=== PATIENT | female | born 1995 | race Hispanic/Latino ===

== ENCOUNTER 2023-01-26 12:07 | Emergency (ER) | payer OTHER ==
[2023-01-26 14:04] LABS: #Eosinphils 0.2 10x3/uL (0.0-0.5); #Monocytes 0.5 10x3/uL (0.0-1.1); #Neutrophils 5.7 10x3/uL (1.5-8.4); %Basophils 0.5 % (0.0-2.0); %Eosinophils 1.8 % (0.0-6.0); %Lymphocytes 22.4 % (18.0-47.0); %Monocytes 6.5 % (0.0-10.0); %Neutrophils 68.3 % (40.0-75.0); Hemoglobin 11.1 g/dL (12.0-15.5); Mean Corpuscular HGB CONC 35.2 g/dL (32.0-36.0); Mean Corpuscular Hemoglobin 31.4 pg (27.0-33.0); Mean Corpuscular Volume 89.2 fl (81.6-98.3); Mean Platelet Volume 9.3 fl (7.4-10.4); Platelet Count 331 10x3/uL (150-450); RBC Distribution Width 12.9 % (11.5-14.5); Red Blood Cell (RBC) Count 3.53 10x6/uL (3.90-5.03); White Blood Cell (WBC) Count 8.4 10x3/uL (3.5-10.5)
== END 2023-01-26 16:07 | disposition home or self-care (01) ==
LOC: CSHERS 12:07
DX: O26.852 Spotting complicating pregnancy, second trimester (principal); Z3A.15 15 weeks gestation of pregnancy; W18.2XXA Fall in (into) shower or empty bathtub, initial encounter
CPT/HCPCS: 36415; 76815; 84702; 85025

== ENCOUNTER 2023-07-09 03:29 | Inpatient (IN) | payer MEDICAID, OTHER, SELFPAY ==
[2023-07-09 04:55] VITALS: BMI 28.3
[2023-07-09] MEDS ORDERED: hydrALAZINE 20 MG/ML VIAL SLOW IVP PRN ×3 (04:55→20:37)
[2023-07-09] MEDS ORDERED: Morphine 4 MG/ML VIAL SLOW IVP SCH (05:00)
[2023-07-09] MEDS ORDERED: Bupivacaine 0.25% HCL 30 ML VIAL ONE (08:00)
[2023-07-09] MEDS ORDERED: Tranexamic Acid 1,000 MG/10 ML VIAL IVP PRN (08:26)
[2023-07-09] MEDS ORDERED: Methylergonovine 0.2 MG/ML VIAL IM PRN (08:26)
[2023-07-09] MEDS ORDERED: Diphenoxylate HCl/Atropine Tablet PO PRN (08:26)
[2023-07-09] MEDS ORDERED: Misoprostol 200 MCG TAB PR PRN (08:26)
[2023-07-09] MEDS ORDERED: Promethazine HCl 25 MG/ML VIAL IM PRN ×2 (08:26→12:09)
[2023-07-09] MEDS ORDERED: Lidocaine 1% (PF) 30 ML VIAL SC PRN (08:26)
[2023-07-09] MEDS ORDERED: Docusate 100 MG CAP PO PRN (08:26)
[2023-07-09] MEDS ORDERED: Carboprost 250 MCG/ML AMP IM PRN (08:26)
[2023-07-09] MEDS ORDERED: Ondansetron PF 4 MG/2 ML Vial IVP PRN ×2 (08:26→12:09)
[2023-07-09] MEDS ORDERED: Acetaminophen 500 MG TAB PO PRN (08:26)
[2023-07-09] MEDS ORDERED: Oxytocin 30 units/NS 500 ML 500 ML IV SCH ×2 (08:30)
[2023-07-09 09:07] LABS: Hematocrit 38.1 % (34.9-44.5); Hemoglobin 13.4 g/dL (12.0-15.5); Mean Corpuscular HGB CONC 35.2 g/dL (32.0-36.0); Mean Corpuscular Hemoglobin 30.6 pg (27.0-33.0); Mean Platelet Volume 9.9 fl (7.4-10.4); Platelet Count 321 10x3/uL (150-450); RBC Distribution Width 13.2 % (11.5-14.5); Red Blood Cell (RBC) Count 4.38 10x6/uL (3.90-5.03); White Blood Cell (WBC) Count 12.6 10x3/uL (3.5-10.5)
[2023-07-09] MEDS ORDERED: fentaNYL/Ropivacaine Epidural 100 ML ONE (09:21)
[2023-07-09 09:47] LABS: HBSAg Index 0.17 S/CO (0-0.99); Hep B Surf Ag - L&D Non-Reactive S/CO (NonReactive)
[2023-07-09 09:49] LABS: Syphilis Antibody Nonreactive (Nonreactive); Syphilis Antibody Index 0.03 S/CO (<1.00 Non-Reactive)
[2023-07-09] MEDS ORDERED: Lactated Ringer's 500 ML IV PRN (12:09)
[2023-07-09] MEDS ORDERED: Moisturizing Cream (Eucerin) 113 GM JAR TOP PRN (12:09)
[2023-07-09] MEDS ORDERED: Naloxone HCl 0.4 mg/ml Vial IVP PRN ×2 (12:09)
[2023-07-09] MEDS ORDERED: diphenhydrAMINE 50 MG/ML VIAL IVP PRN (12:09)
[2023-07-09] MEDS ORDERED: ePHEDrine Sulfate 50 MG/10 ML VIAL SLOW IVP PRN (12:09)
[2023-07-09] MEDS ORDERED: Communication Order-Pharmacy FS SCH (12:15)
[2023-07-09] MEDS ORDERED: fentaNYL 2 mcg/Ropivacaine 0.2% Epidural 100 ML CADD EPIDURAL SCH (12:15)
[2023-07-09] MEDS: Acetaminophen 325 MG TAB PO PRN (14:19)
[2023-07-09] MEDS: Lactated Ringer's 1,000 ML IV SCH ×2 (18:26→18:27)
[2023-07-09] MEDS ORDERED: Milk Of Magnesia 30 ML UDCUP PO PRN (20:37)
[2023-07-09] MEDS ORDERED: Boostrix 0.5 ML (Tdap) VIAL (>/=7 yrs of age) IM ONE (20:37)
[2023-07-09] MEDS ORDERED: Bisacodyl 10 MG SUPP PR PRN (20:37)
[2023-07-09] MEDS ORDERED: diphenhydrAMINE 25 MG CAP PO PRN (20:37)
[2023-07-09] MEDS ORDERED: Lanolin Ointment 7 GM TUBE TOP PRN (20:37)
[2023-07-09] MEDS: Ibuprofen 800 MG TAB PO SCH (21:31)
[2023-07-09] MEDS: Docusate 100 MG CAP PO SCH (21:31)
[2023-07-10] MEDS: Ibuprofen 800 MG TAB PO SCH ×3 (05:24→21:38)
[2023-07-10] MEDS: Prenatal Vitamin 1 TAB PO SCH (08:30)
[2023-07-10] MEDS: Docusate 100 MG CAP PO SCH ×2 (08:30→21:38)
[2023-07-10] MEDS: Ferrous Sulfate 325 MG TAB PO SCH ×2 (08:31→16:16)
[2023-07-10] MEDS: Acetaminophen 325 MG TAB PO PRN (16:31)
[2023-07-10] MEDS ORDERED: HYDROcodone/Acetaminophen 5/325 mg Tablet PO PRN ×2 (17:44→19:54)
[2023-07-10] MEDS ORDERED: Benzocaine-Menthol 82.5 ML CAN TOP PRN (21:01)
[2023-07-11] MEDS: Ibuprofen 800 MG TAB PO SCH ×2 (05:45→14:23)
[2023-07-11 07:46] VITALS: BP 93/50; TEMP 98.1
[2023-07-11] MEDS: Ferrous Sulfate 325 MG TAB PO SCH (08:23)
[2023-07-11] MEDS: Prenatal Vitamin 1 TAB PO SCH (08:23)
[2023-07-11] MEDS: Docusate 100 MG CAP PO SCH (08:24)
== END 2023-07-11 17:00 | disposition home or self-care (01) | DRG 807 ==
LOC: CSHLD/OP 03:29 → CSHLD 08:18 → CSHPP 19:30
PROVIDERS: ADMIT Family Medicine; ATTEND Family Medicine
PROC: 10E0XZZ Delivery of Products of Conception, External Approach (ICD-10-PCS; principal; 2023-07-09)
PROC: 0KQM0ZZ Repair Perineum Muscle, Open Approach (ICD-10-PCS; 2023-07-09)
DX: O99.214 Obesity complicating childbirth (principal); Z37.0 Single live birth; Z3A.40 40 weeks gestation of pregnancy; O48.0 Post-term pregnancy; O70.1 Second degree perineal laceration during delivery
CPT/HCPCS: 36415; 51702; 85027; 86780; 86850; 86900; 86901; 87340; 99285; J2270; S0020